=== PATIENT | male | born 1990 | race Caucasian/White ===

== ENCOUNTER 2017-05-10 16:18 | Emergency (ER) | payer SELFPAY ==
[~2017-05-10] VITALS: Ht 203.2 cm; Wt 185.0 kg
[~2017-05-10 16:18] MED LIST: ALBU8I INH; ULTR50TA PO
[2017-05-10 16:27] VITALS: BP 149/88; PULSE 116; RESP 16; TEMP 97.9; O2SAT 98
[2017-05-10] MEDS ORDERED: CELE10TA PO (17:23)
--- NOTE | 2017-05-10 17:39 | PD ---
HPI Chief Complaint: Cold / Flu Symptoms Time Seen by Provider: 17:24 Travel History International Travel<30 days: No Contact w/Intl Traveler<30days: No Traveled to known affect area: No History of Present Illness HPI 27-year-old male patient presents emergency department for evaluation of nasal congestion, cough, sore throat and cough 10 days. Patient states she's been running a fever intermittently. He is afebrile triage. Patient describes the cough as dry and hacking. Patient has no major medical history. He has not taken any medication. He states he's been trying to take NyQuil and DayQuil but they have not been helping him. Patient denies any smoking. [facility] Social History Alcohol Use: Yes (often) Tobacco Use: No Substance Use: No Allergies-Medications (Allergen,Severity, Reaction): Coded Allergies: codeine (Unverified Allergy, Severe, HALLUCINATIONS, 05/10/17) Reported Meds & Prescriptions Reported Meds & Active Scripts Active Bactrim DS (Sulfamethoxazole-Trimethoprim) 800-160 Mg Tab 1 Tab PO BID 3 Days Reported Celexa (Citalopram Hydrobromide) 10 Mg Tab 10 Mg PO DAILY Review of Systems Except as stated in HPI: all other systems reviewed are Neg Physical Exam Narrative GENERAL: Well-nourished, well-developed 27-year-old male patient in no acute distress. Nontoxic appearing. SKIN: Focused skin assessment warm/dry. HEAD: Normocephalic. Atraumatic. EYES: No scleral icterus. No injection or drainage. ENT: Mucosa pink and moist. Mild pharyngeal erythema with bilateral tonsillar hypertrophy, no exudates. No uvular edema. No uvular, palatal, or tonsillar deviation. Airway patent. Nasal turbinates appear mildly hypertrophic with nasal congestion without nasal blood, purulent drainage or septal hematoma. NECK: Supple, trachea midline. No JVD or lymphadenopathy. CARDIOVASCULAR: Regular rate and rhythm without murmurs, gallops, or rubs. RESPIRATORY: Breath sounds equal bilaterally. No accessory muscle use. GASTROINTESTINAL: Abdomen soft, non-tender, nondistended. MUSCULOSKELETAL: No cyanosis, or edema. BACK: Nontender without obvious deformity. No CVA tenderness. Data Data Last Documented VS Vital Signs Date Time Temp Pulse Resp B/P (MAP) Pulse Ox O2 Delivery O2 Flow Rate FiO2 05/10/17 18:19 108 20 98 Room Air 05/10/17 16:27 97.9 149/88 (108) Orders Orders Group A Rapid Strep Screen (05/10/17 17:29) Influenzae A/B Antigen (05/10/17 17:29) Strep Culture (Group A) (05/10/17 17:30) Ed Discharge Order (05/10/17 18:34) MDM Medical Decision Making Medical Screen Exam Complete: Yes Emergency Medical Condition: Yes Differential Diagnosis Differential diagnoses include but not limited to pharyngitis, influenza, upper respiratory infection Narrative Course Rapid strep ordered and pending. Influenza ordered and pending. Patient will be discharged home with an antibiotic prescription for bronchitis and instructions for supportive care. Diagnosis Primary Impression: Bronchitis Referrals: Primary Care Physician Patient Instructions: Acute Bronchitis (ED), General Instructions Additional Instructions: Please return to emergency department if your symptoms return or worsen. Follow up with your primary care provider. Take medications as prescribed. Supportive care, stay hydrated, get enough rest, denies tolerated. May alternate Tylenol and ibuprofen as needed for pain or fever. Med/Other Pt SpecificInfo: Prescription(s) given Scripts Benzonatate (Tessalon Perles) 100 Mg Cap 100 MG PO TID Y for COUGH for 3 Days, CAP 0 Refills Prov: Basia Rubi 05/10/17 Sulfamethoxazole-Trimethoprim (Bactrim DS) 800-160 Mg Tab 1 TAB PO BID for Infection for 3 Days, #6 TAB 0 Refills Prov: Basia Rubi 05/10/17 Disposition: 01 DISCHARGE HOME Condition: Stable Basia Rubi May 10, 2017 17:39
[2017-05-10 18:19] VITALS: PULSE 108; RESP 20; O2SAT 98
[2017-05-10] MEDS ORDERED: BACT800T5 PO (18:32)
[2017-05-10] MEDS ORDERED: BENZ100 PO (18:45)
== END 2017-05-10 18:49 | disposition home or self-care (01) ==
LOC: PHED 16:18 → PHEFT 18:49
DX: J40 Bronchitis, not specified as acute or chronic (principal)
CPT/HCPCS: 87081; 87804; 87880; 99284

== ENCOUNTER 2017-05-19 15:22 | Emergency (ER) | payer SELFPAY ==
[~2017-05-19 15:22] MED LIST changes: -ALBU8I INH; +BACT800T5 PO; +BENZ100 PO; +CELE10TA PO; -ULTR50TA PO
[2017-05-19 15:24] VITALS: BP 145/81; PULSE 104; RESP 16; TEMP 97.6; O2SAT 96
--- NOTE | 2017-05-19 16:07 | PD ---
HPI Chief Complaint: Headache Time Seen by Provider: 15:47 Travel History International Travel<30 days: No Contact w/Intl Traveler<30days: No Traveled to known affect area: No History of Present Illness HPI This patient complains of headache. He has bilateral throbbing pain in the front sides and back. No head injury. No thunderclap onset. Duration 3 days. Severity is moderate. No alleviating factors. He's tried Tylenol and Motrin. No exacerbating factors. PFSH Past Medical History Depression: Yes Diminished Hearing: No Psychiatric: Yes Tetanus Vaccination: > 5 Years Influenza Vaccination: No Past Surgical History Surgical History: No Previous Surgery Social History Alcohol Use: Yes (often) Tobacco Use: No Substance Use: No Allergies-Medications (Allergen,Severity, Reaction): Coded Allergies: codeine (Verified Adverse Reaction, Severe, HALLUCINATIONS, 05/19/17) Reported Meds & Prescriptions Reported Meds & Active Scripts Active Reported Celexa (Citalopram Hydrobromide) 10 Mg Tab 10 Mg PO DAILY Review of Systems General / Constitutional: No: Fever Eyes: No: Visual changes HENT: Positive: Headaches Cardiovascular: No: Chest Pain or Discomfort Respiratory: No: Shortness of Breath Gastrointestinal: No: Abdominal Pain Genitourinary: No: Dysuria Musculoskeletal: No: Pain Skin: No Rash Neurologic: Positive: Headache, No: Weakness Psychiatric: No: Depression Endocrine: No: Polydipsia Hematologic/Lymphatic: No: Easy Bruising Physical Exam Narrative GENERAL: Well-nourished, well-developed patient with headache. SKIN: Focused skin assessment reveals no rash and nodules. Skin is Warm and dry. HEAD: Atraumatic. Normocephalic. No temporal tenderness EYES: Pupils equal and round. No scleral icterus. No injection or drainage. ENT: No nasal bleeding or discharge. Mucous membranes pink and moist. NECK: Trachea midline. No JVD. No meningeal signs CARDIOVASCULAR: Regular rate and rhythm. No murmur appreciated. RESPIRATORY: No accessory muscle use. Clear to auscultation. Breath sounds equal bilaterally. GASTROINTESTINAL: Abdomen soft, non-tender, nondistended. Hepatic and splenic margins not palpable. MUSCULOSKELETAL: No obvious deformities. No clubbing. No cyanosis. No edema. NEUROLOGICAL: Awake and alert. No obvious cranial nerve deficits. Motor grossly within normal limits. Normal speech. PSYCHIATRIC: Appropriate mood and affect; insight and judgment normal. Data Data Last Documented VS Vital Signs Date Time Temp Pulse Resp B/P (MAP) Pulse Ox O2 Delivery O2 Flow Rate FiO2 05/19/17 15:55 17 99 Room Air 05/19/17 15:24 97.6 104 145/81 (102) Orders Orders Ct Brain W/O Iv Contrast(Rout) (05/19/17 ) MDM Medical Decision Making Medical Screen Exam Complete: Yes Emergency Medical Condition: Yes Medical Record Reviewed: Yes Differential Diagnosis Differential diagnosis includes migraine, tension headache, cluster headache, meningitis. Narrative Course I have reviewed the patient's electronic medical record. Patient is neurologically intact. Presentation not consistent with subarachnoid hemorrhage Brain CT is normal Stable for outpatient follow-up Diagnosis Primary Impression: Headache Qualified Codes: R51 - Headache Additional Instructions: The patient was advised to follow up with their physician and return if they worsen. The patient was warned about potential sedation for the medications they will receive on prescription. Med/Other Pt SpecificInfo: Prescription(s) given Disposition: DISCHARGE HOME Condition: Stable Roge Schwartz MD May 19, 2017 16:07
--- NOTE | 2017-05-19 16:22 | RADRPT ---
EXAM DATE/TIME: 05/19/2017 16:00 [facility] COMPARISON: No previous studies available for comparison. INDICATIONS : Headaches for three days. RADIATION DOSE: 56.35 CTDIvol (mGy) MEDICAL HISTORY : None SURGICAL HISTORY : None. ENCOUNTER: Initial ACUITY: 3 days PAIN SCALE: 7/10 LOCATION: Bilateral cranial TECHNIQUE: Multiple contiguous axial images were obtained of the head. Using automated exposure control and adj ustment of the mA and/or kV according to patient size, radiation dose was kept as low as reasonably a chievable to obtain optimal diagnostic quality images. DICOM format image data is available electro nically for review and comparison. FINDINGS: CEREBRUM: The ventricles are normal for age. No evidence of midline shift, mass lesion, hemorrhage or acute in farction. No extra-axial fluid collections are seen. POSTERIOR FOSSA: The cerebellum and brainstem are intact. The 4th ventricle is midline. The cerebellopontine angle i s unremarkable. EXTRACRANIAL: The visualized portion of the orbits is intact. SKULL: The calvaria is intact. No evidence of skull fracture. CONCLUSION: Normal examination. Brandyn Bejarano MD on May 19, 2017 at 16:19 Board Certified Radiologist. This report was verified electronically.
[2017-05-19] MEDS ORDERED: TYLETAB34 PO (16:44)
[2017-05-19 16:50] VITALS: BP 130/82; TEMP 97.8
[2017-05-19] MEDS ORDERED: TRAM50TA PO (16:52)
== END 2017-05-19 16:50 | disposition home or self-care (01) ==
LOC: NEPD 15:22
DX: R51 Headache (principal); F32.9 Major depressive disorder, single episode, unspecified
CPT/HCPCS: 70450; 99284

== ENCOUNTER 2017-07-07 17:42 | Emergency (ER) | payer SELFPAY ==
[~2017-07-07] VITALS: Ht 203.2 cm; Wt 159.0 kg
[2017-07-07 17:42] VITALS: BP 167/93; PULSE 106; RESP 20; TEMP 98.3; O2SAT 98
[~2017-07-07 17:42] MED LIST changes: -BACT800T5 PO; -BENZ100 PO; +TRAM50TA PO; +TYLETAB34 PO
--- NOTE | 2017-07-07 18:21 | RADRPT ---
EXAM DATE/TIME: 07/07/2017 18:08 [facility] COMPARISON: No previous studies available for comparison. INDICATIONS : Short of breath, flu like symptoms. MEDICAL HISTORY : None. SURGICAL HISTORY : None. ENCOUNTER: Initial ACUITY: 1 day PAIN SCORE: 0/10 LOCATION: Bilateral chest FINDINGS: PA and lateral views of the chest demonstrate the lungs to be symmetrically aerated without evidence of mass, infiltrate or effusion. Minimal basal atelectasis. The cardiomediastinal contours are unrema rkable. Osseous structures are intact. CONCLUSION: Minimal basal atelectasis. Brown Arrington MD on July 07, 2017 at 18:16 Board Certified Radiologist. This report was verified electronically.
[2017-07-07 18:43] LABS: AUTOMATED NEUTROPHIL # 7.6 TH/MM3 (1.8-7.7); BASOPHIL % 0.3 % (0.0-2.0); EOSINOPHIL # 0.1 TH/MM3 (0-0.4); EOSINOPHIL % 1.4 % (0.0-4.0); HEMATOCRIT 47.3 % (39.0-51.0); HEMOGLOBIN 16.8 GM/DL (13.0-17.0); LYMPH % 17.5 % (9.0-44.0); LYMPHOCYTE # 1.8 TH/MM3 (1.0-4.8); MEAN CELL VOLUME 90.1 FL (80.0-100.0); MEAN CORPUSCULAR HEMOGLOBIN 32.1 PG (27.0-34.0); MEAN CORPUSCULAR HGB CONC 35.6 % (32.0-36.0); MONO % 8.2 % (0.0-8.0); MONOCYTE # 0.9 TH/MM3 (0-0.9); NEUT % 72.6 % (16.0-70.0); PLATELET COUNT 211 TH/MM3 (150-450); RED BLOOD COUNT 5.25 MIL/MM3 (4.50-5.90); RED CELL DISTRIBUTION WIDTH 12.6 % (11.6-17.2); WHITE BLOOD COUNT 10.5 TH/MM3 (4.0-11.0)
--- NOTE | 2017-07-07 18:55 | PD ---
HPI Chief Complaint: Cold / Flu Symptoms Time Seen by Provider: 18:40 Travel History International Travel<30 days: No Contact w/Intl Traveler<30days: No Traveled to known affect area: No History of Present Illness HPI 27-year-old male presents to the emergency department complaining of cough, sore throat, and and chest tightness since . Patient states that he woke up with a sore throat and worsened Thursday. States that his cough is nonproductive but does feel slightly short of breath. Patient states he "feels like crap". States he also has decreased appetite. He currently denies fever, chills, nausea, vomiting, diarrhea. Has used [id number] medications without relief. Patient has no medical history and does not take any medications routinely. Patient does not smoke. PFSH Past Medical History Depression: Yes Diminished Hearing: No Psychiatric: Yes Social History Alcohol Use: Yes (often) Tobacco Use: No Substance Use: No Allergies-Medications (Allergen,Severity, Reaction): Coded Allergies: codeine (Verified Adverse Reaction, Severe, HALLUCINATIONS, 05/19/17) Reported Meds & Prescriptions Reported Meds & Active Scripts Active Tessalon Perles (Benzonatate) 100 Mg Cap 100 Mg PO TID PRN 5 Days Ventolin Hfa 18 GM Inh (Albuterol Sulfate) 90 Mcg/Act Aer 2 Puff INH Q4-6H PRN Medrol Dosepak (Methylprednisolone) 4 Mg Dspk 4 Mg PO DIRECTED Per Pharmacist direction Tramadol (Tramadol HCl) 50 Mg Tab 50 Mg PO Q6H PRN Tylenol-Codeine #3 (Acetaminophen-Codeine) 300-30 mg Tab 1 Tab PO Q4H PRN Reported Celexa (Citalopram Hydrobromide) 10 Mg Tab 10 Mg PO DAILY Review of Systems Except as stated in HPI: all other systems reviewed are Neg Physical Exam Narrative GENERAL: Well-developed well-nourished in no apparent distress, resting comfortably in bed SKIN: Focused skin assessment warm/dry. HEAD: Atraumatic. Normocephalic. EYES: Pupils equal and round. No scleral icterus. No injection or drainage. ENT: No nasal bleeding or discharge. Mucous membranes pink and moist. Mild posterior pharyngeal injection, no tonsillar hypertrophy or exudates NECK: Trachea midline. No JVD. No lymphadenopathy CARDIOVASCULAR: Regular rate and rhythm. No murmur appreciated. RESPIRATORY: No accessory muscle use. Bilateral wheezing GASTROINTESTINAL: Abdomen soft, non-tender, nondistended. MUSCULOSKELETAL: No obvious deformities. No clubbing. No cyanosis. No edema. NEUROLOGICAL: Awake and alert. No obvious cranial nerve deficits. Motor grossly within normal limits. Normal speech. PSYCHIATRIC: Appropriate mood and affect; insight and judgment normal. Data Data Last Documented VS Vital Signs Date Time Temp Pulse Resp B/P (MAP) Pulse Ox O2 Delivery O2 Flow Rate FiO2 07/07/17 20:38 07/07/17 17:42 98.3 106 20 98 Room Air Orders Orders Chest, Pa & Lat (07/07/17 ) Influenzae A/B Antigen (07/07/17 17:55) Complete Blood Count With Diff (07/07/17 17:55) Basic Metabolic Panel (Bmp) (07/07/17 17:55) Albuterol Neb (Albuterol Neb) (07/07/17 19:00) Ed Discharge Order (07/07/17 20:20) Prednisone (Deltasone) (07/07/17 21:00) Labs Laboratory Tests Test 07/07/17 18:12 White Blood Count 10.5 TH/MM3 Red Blood Count 5.25 MIL/MM3 Hemoglobin 16.8 GM/DL Hematocrit 47.3 % Mean Corpuscular Volume 90.1 FL Mean Corpuscular Hemoglobin 32.1 PG Mean Corpuscular Hemoglobin Concent 35.6 % Red Cell Distribution Width 12.6 % Platelet Count 211 TH/MM3 Mean Platelet Volume 9.0 FL Neutrophils (%) (Auto) 72.6 % Lymphocytes (%) (Auto) 17.5 % Monocytes (%) (Auto) 8.2 % Eosinophils (%) (Auto) 1.4 % Basophils (%) (Auto) 0.3 % Neutrophils # (Auto) 7.6 TH/MM3 Lymphocytes # (Auto) 1.8 TH/MM3 Monocytes # (Auto) 0.9 TH/MM3 Eosinophils # (Auto) 0.1 TH/MM3 Basophils # (Auto) 0.0 TH/MM3 CBC Comment AUTO DIFF Differential Total Cells Counted 100 Neutrophils % (Manual) 69 % Band Neutrophils % 1 % Lymphocytes % 22 % Monocytes % 6 % Neutrophils # (Manual) 7.6 TH/MM3 Metamyelocytes 1 % Myelocytes 1 % Differential Comment FINAL DIFF MANUAL Toxic Granulation 2+ Platelet Estimate NORMAL Platelet Morphology Comment NORMAL Basophilic Stippling FAINT Blood Urea Nitrogen 11 MG/DL Creatinine 0.94 MG/DL Random Glucose 99 MG/DL Calcium Level 9.4 MG/DL Sodium Level 137 MEQ/L Potassium Level 3.9 MEQ/L Chloride Level 103 MEQ/L Carbon Dioxide Level 28.5 MEQ/L Anion Gap 6 MEQ/L Estimat Glomerular Filtration Rate 96 ML/MIN MDM Medical Decision Making Medical Screen Exam Complete: Yes Emergency Medical Condition: Yes Differential Diagnosis Acute bronchitis, pneumonia, influenza, viral syndrome Narrative Course This 27-year-old male presents emergency department with nonproductive cough, subjective shortness of breath and sore throat. Patient states he does use multiple [id number] medications without relief. He denies fever, chills, shortness of breath, abdominal pain, nausea, vomiting, diarrhea. Patient did have an apparent vasovagal episode without full syncope while getting blood draw and therefore he was brought back to a medical bed for evaluation. His exam demonstrates diffuse wheezing without rales or rhonchi. No tenderness palpation of the chest wall of the has some tenderness to the posterior left scapula consistent with muscle spasms. Chest x-ray, labs ordered. Albuterol neb 1 ordered as he did sound like he was wheezing. Patient was reluctant to accept this nebulizer however, I insisted since he was wheezing. I suspect that his symptoms are related to a viral bronchitis. CXR without acute process. Prednisone 60mg administered PO. Patient says that Hycodan is normally works for his cough, says Tessalon Perles are ineffective for his cough. Pt is not actively coughing in the ED today. Pt will go home with albuterol inhaler, Tessalon pearles, and medrol dose pack. Advised to follow up with his PCP. Return for worsening symptoms. Diagnosis Primary Impression: Acute bronchitis Qualified Codes: J20.8 - Acute bronchitis due to other specified organisms Referrals: Primary Care Physician Additional Instructions: Take her medications as prescribed. Encouraged adequate fluid intake and proper nutrition. Follow-up with primary care physician within 2-3 days. Return to the nurse for worsening or persistent symptoms. Scripts Benzonatate (Tessalon Perles) 100 Mg Cap 100 MG PO TID Y for COUGH for 5 Days, CAP 0 Refills Prov: Oneyda Rocha 07/07/17 Albuterol 18 GM Inh (Ventolin Hfa 18 GM Inh) 90 Mcg/Act Aer 2 PUFF INH Q4-6H Y for SHORTNESS OF BREATH, #1 INHALER 0 Refills Prov: Oneyda Rocha 07/07/17 Methylprednisolone Dosepak (Medrol Dosepak) 4 Mg Dspk 4 MG PO DIRECTED, #1 DSPK 0 Refills Per Pharmacist direction Prov: Oneyda Rocha 07/07/17 Disposition: 01 DISCHARGE HOME Condition: Stable Oneyda Rocha Jul 07, 2017 18:55
[2017-07-07] MEDS ORDERED: RESP: ALBUTEROL 2.5 MG/3 ML NEB (SCH) INH ONE (19:00)
[2017-07-07] MEDS ORDERED: BENZ100 PO ×2 (19:01→20:41)
[2017-07-07 19:09] LABS: BICARBONATE 28.5 MEQ/L (21.0-32.0); CALCIUM 9.4 MG/DL (8.5-10.1); CREATININE 0.94 MG/DL (0.60-1.30)
[2017-07-07 19:21] LABS: BANDS 1 % (0-6); LYMPHOCYTES 22 % (9-44); METAMYELOCYTES 1 % (0-1); MONOCYTES 6 % (0-8); MYELOCYTES 1 % (0-0); NEUTROPHIL # MANUAL DIFF 7.6 TH/MM3 (1.8-7.7); POLYS (SEG NEUTROPHILS) 69 % (16-70)
[2017-07-07 19:22] LABS: TOXIC GRANULATION 2+ (NORMAL)
[2017-07-07] MEDS ORDERED: MEDR4PAK PO (20:13)
[2017-07-07] MEDS ORDERED: HYDR5SYP10 PO (20:20)
[2017-07-07] MEDS ORDERED: VENTAER INH (20:22)
[2017-07-07] MEDS ORDERED: predniSONE 50 MG TAB PO ONE (20:30)
[2017-07-07] MEDS ORDERED: predniSONE 20 MG TAB PO ONE (21:00)
== END 2017-07-07 20:58 | disposition home or self-care (01) ==
LOC: NEPC 17:42
DX: J20.8 Acute bronchitis due to other specified organisms (principal); F32.9 Major depressive disorder, single episode, unspecified; Z88.5 Allergy status to narcotic agent
CPT/HCPCS: 71046; 80048; 85007; 85027; 87804; 94664; 99284; J7613